=== PATIENT | female | born 1955 | race Caucasian/White ===

== ENCOUNTER 2020-03-21 10:50 | Emergency (ER) | payer BC ==
--- NOTE | 2020-03-21 14:35 | RAD ---
RIGHT SHOULDER 2 VIEWS: Date: 03/21/2020 There is a multipart fracture involving the proximal humerus. One fracture starts through the surgica l neck and extends up into the lateral aspect of the humeral head. The greater tubercle appears invol mari. The oblique view suggests a slight anterior dislocation of the humeral head as well. The scapula and visible adjacent ribs appear intact. IMPRESSION: Multipart proximal humeral fracture as described above with slight anterior dislocation of the devin l head. POS: HOME
--- NOTE | 2020-03-21 14:36 | RAD ---
RIGHT HUMERUS: Date: 03/21/2020 A fracture through the humeral neck is apparent with displacement of the humeral neck and shaft later ally compared to the head. The greater tubercle appears to be fractured as well. IMPRESSION: Proximal humeral fracture with displacement. POS: HOME
--- NOTE | 2020-03-21 14:37 | RAD ---
RIGHT ELBOW 2 VIEWS: Date: 03/21/2020 No fracture, dislocation, or joint effusion seen. IMPRESSION: No acute bony changes. POS: HOME
== END 2020-03-21 12:46 | disposition home or self-care (01) ==
LOC: BURERS 10:50
DX: S42.201A Unspecified fracture of upper end of right humerus, initial encounter for closed fracture (principal); W06.XXXA Fall from bed, initial encounter